=== PATIENT | female | born 1995 | race African-American/Black ===

== ENCOUNTER 2017-06-25 18:28 | Emergency (ER) | payer SELFPAY ==
[~2017-06-25] VITALS: Ht 162.6 cm; Wt 55.3 kg
[~2017-06-25 18:28] MED LIST: IBUP-1060 PO; PNV1TABL25 PO
[2017-06-25 18:45] VITALS: BP 108/59
[2017-06-25] MEDS ORDERED: SULF1TAB24 PO (19:19)
--- NOTE | 2017-06-25 19:20 | PHYS DOC ---
Past Medical History Past Medical History: No Pertinent History Past Surgical History: No Surgical History Alcohol Use: Rarely Drug Use: None Adult General Chief Complaint Chief Complaint: ABSCESS HPI HPI Patient is a 22 year old female with history of staph infections who presents with an abscess on the left thigh that she noted 2 days ago. Review of Systems Review of Systems Constitutional: Denies fever or chills [] Musculoskeletal: Denies back pain or joint pain [] Integument: abscess on the left thigh Neurologic: Denies headache, focal weakness or sensory changes [] Allergies Allergies Allergies Coded Allergies Type Severity Reaction Last Updated Verified shellfish derived Allergy Intermediate 09/20/14 Yes Physical Exam Physical Exam Constitutional: Well developed, well nourished, no acute distress, non-toxic appearance. [] Skin: Left posterior thigh with an open abscess, the abscess is draining yellow purulent material. Patient herself is draining it. There is 1 cm cellulitis around the area. Patient will not let me drain this abscess. The area feels fluctuant and very tender. The area is warm to touch. Back: No tenderness, no CVA tenderness. [] Extremities: No tenderness, no cyanosis, no clubbing, ROM intact, no edema. [] Neurologic: Alert and oriented X 3, normal motor function, normal sensory function, no focal deficits noted. [] Psychologic: Affect normal, judgement normal, mood normal. [] Current Patient Data Vital Signs Vital Signs Date Time Temp Pulse Resp B/P (MAP) Pulse Ox O2 Delivery O2 Flow Rate FiO2 06/25/17 18:45 98.9 79 18 99 Room Air 98.9 EKG EKG [] Radiology/Procedures Radiology/Procedures [] Course & Med Decision Making Course & Med Decision Making Pertinent Labs and Imaging studies reviewed. (See chart for details) Patient has an abscess with cellulitis on the left posterior thigh that she is draining herself. She will not let me drain it. She was discharged on Bactrim. Instructed to keep the area clean and dry. Warm compresses recommended to the area. Tetanus is up-to-date. Follow-up with primary care doctor in 1-2 weeks. Dragon Disclaimer Dragon Disclaimer This electronic medical record was generated, in whole or in part, using a voice recognition dictation system. Departure Departure Impression: Primary Impression: Cellulitis and abscess of lower extremity Disposition: 01 HOME, SELF-CARE Condition: STABLE Referrals: NO PCP (PCP) Follow-up with your doctor in 1-2 weeks Patient Instructions: Abscess, [id number], Cellulitis Additional Instructions: You were seen with an abscess and cellulitis of the posterior thigh. Take your antibiotics as prescribed until completed, apply warm compresses to the area twice a day, keep the area clean and dry. Follow-up with your doctor in 1-2 weeks. Come back to the ED if wound condition worsens or you develop a fever. Scripts Sulfamethoxazole/Trimethoprim (BACTRIM DS TABLET) 1 Each Tablet 1 TAB PO BID, #20 TAB Prov: LEN CABALLERO APRN 06/25/17 LEN CABALLERO APRN Jun 25, 2017 19:20
== END 2017-06-25 19:25 | disposition home or self-care (01) ==
LOC: ER 18:28
DX: L02.416 Cutaneous abscess of left lower limb (principal); L03.116 Cellulitis of left lower limb; Z86.19 Personal history of other infectious and parasitic diseases; Z91.013 Allergy to seafood
CPT/HCPCS: 99283